=== PATIENT | male | born 1950 | race Caucasian/White ===

== ENCOUNTER 2016-10-05 07:45 | Day surgery (SDC) | payer BC ==
--- NOTE | ~2016-10-05 | EGD ---
EGD REPORT [facility] [address] [address] NAME: KODAK DARDEN : 50 STATUS : REG [facility] [place] PAT#: [id number] AGE: 66 ADM/REG DATE : 10/05/16 MR#: [id number] REPORT SERV DATE: 10/05/16 DICTATED BY: LINH SRIVASTAVA DATE: 10/05/16 REPORT STATUS : Draft [facility]ANS[facility]IBED BY: [email or web address] DATE: 10/05/16 Endoscopy Center Patient Name: Kodak Darden Date of : 1950 Attending MD: LINH SRIVASTAVA MD Procedure Date No Time: 10/05/2016 Procedure: Upper GI endoscopy Indications: Esophageal reflux, globus sensation. Food is passing without a problem. hoarseness Referring MD: ISAEL DENNIS MD Medicines: Monitored Anesthesia Care Complications: No immediate complications. Procedure: Pre-Anesthesia Assessment: - ASA Grade Assessment: III - A patient with severe systemic disease. After obtaining informed consent, the endoscope was passed under direct vision. Throughout the procedure, the patient's blood pressure, pulse, and oxygen saturations were monitored continuously. The GIF [id number] was introduced through the mouth, and advanced to the second part of duodenum. The upper GI endoscopy was accomplished without difficulty. The patient tolerated the procedure well. Findings: The examined esophagus was normal. Localized mild erythema was found at the gastroesophageal junction. Biopsies were taken with a cold forceps for histology. The cardia and gastric fundus were normal on retroflexion. A single 10 mm pedunculated polyp with no stigmata of recent bleeding was found in the gastric body. Biopsies were taken with a cold forceps for histology. Few non-bleeding superficial duodenal ulcers with no stigmata of bleeding were found in the duodenal bulb. The largest lesion was 7 mm in largest dimension. Biopsies were taken with a cold forceps for histology. Impression: - Normal esophagus. - Erythema at the gastroesophageal junction. Biopsied. - A single gastric polyp. Biopsied. - Multiple duodenal ulcers with clean base. Biopsied. Recommendation: - Patient has a contact number available for emergencies. The signs and symptoms of potential delayed complications were discussed with the patient. Return to normal activities tomorrow. Written discharge EGD REPORT [address] [address] NAME: KODAK DARDEN : [birth year] STATUS : REG [facility] [place] PAT#: [id number] AGE: 66 ADM/REG DATE : 10/05/16 MR#: [id number] REPORT SERV DATE: 10/05/16 DICTATED BY: LINH SRIVASTAVA DATE: 10/05/16 REPORT STATUS : Draft TRANSCRIBED BY: [employer] DATE: 10/05/16 instructions were provided to the patient. - Regular diet. - Continue present medications. - Use Protonix (pantoprazole) 40 mg PO BID. - Return to GI clinic in 4 weeks. Procedure Code(s): --- Professional --- 53891, Esophagogastroduodenoscopy, flexible, transoral; with biopsy, single or multiple Diagnosis Code(s): --- Professional --- K22.9, Disease of esophagus, unspecified K31.7, Polyp of stomach and duodenum K26.9, Duodenal ulcer, unspecified as acute or chronic, without hemorrhage or perforation K21.9, Gastro-esophageal reflux disease without esophagitis CPT copyright 2013 [employer]. All rights reserved. The codes documented in this report are preliminary and upon inspector tool review may be revised to meet current compliance requirements. LINH SRIVASTAVA MD 10/05/2016 9:09 AM This report has been signed electronically. Number of Addenda: 0 Note Initiated On: 10/05/2016 8:49 AM Scope Withdrawal Time 0 hours 0 minutes 0 seconds [id number] [place] [id number]
[~2016-10-05 07:45] MED LIST: ASAB PO; GLUCPH PO; PROTONIX PO; RANITIDINE300 MG PO; ZESTRIL30 MG PO; ZOCOR20 PO
== END 2016-10-05 23:59 | disposition home or self-care (01) ==
LOC: DMU 07:45
PROVIDERS: Internal Medicine Gastroenterology
PROC: 0DB68ZX Excision of Stomach, Via Natural or Artificial Opening Endoscopic, Diagnostic (ICD-10-PCS; 2016-10-05)
PROC: 0DB48ZX Excision of Esophagogastric Junction, Via Natural or Artificial Opening Endoscopic, Diagnostic (ICD-10-PCS; 2016-10-05)
PROC: 0DB98ZX Excision of Duodenum, Via Natural or Artificial Opening Endoscopic, Diagnostic (ICD-10-PCS; principal; 2016-10-05 09:30)
DX: K31.7 Polyp of stomach and duodenum (principal); K22.9 Disease of esophagus, unspecified; K26.9 Duodenal ulcer, unspecified as acute or chronic, without hemorrhage or perforation; I10 Essential (primary) hypertension; E11.9 Type 2 diabetes mellitus without complications; G47.33 Obstructive sleep apnea (adult) (pediatric); Z99.81 Dependence on supplemental oxygen
CPT/HCPCS: 82962; 88305